=== PATIENT | female | born 1950 | race Hispanic/Latino ===

== ENCOUNTER 2020-12-29 09:27 | Day surgery (SDC) | payer MEDICARE ==
[2020-12-26 09:44] LABS: BASOPHILS % (AUTO) 0.3 % (0.0-5.0); EOSINOPHILS % (AUTO) 0.8 % (0.0-8.0); HEMATOCRIT 43.2 % (36-48); LYMPHOCYTES % (AUTO) 34.4 % (21.0-51.0); MEAN CORPUSCULAR HEMOGLOBIN 30.2 pg (27.0-33.0); MEAN CORPUSCULAR HGB CONC 32.2 g/dL (32.0-36.0); MEAN CORPUSCULAR VOLUME 93.7 fL (79-99); MONOCYTES % (AUTO) 6.4 % (3.0-13.0); NEUTROPHILS % (AUTO) 57.8 % (40.0-77.0); PLATELET COUNT (AUTO) 234 K/uL (130-400); RED BLOOD CELL COUNT(AUTO) 4.61 MIL/uL (4.00-5.50); RED CELL DISTRIBUTION WIDTH 13.2 % (11.0-15.5); WHITE BLOOD COUNT (AUTO) 6.3 K/uL (4.8-10.8)
[2020-12-26 09:53] LABS: CREATININE 0.9 mg/dL (0.5-1.5); POTASSIUM 4.3 mmol/L (3.5-5.1)
[2020-12-28 11:47] VITALS: BP 215/78
[2020-12-29] VITALS (18 sets, daily range): BP systolic 126–196; BP diastolic 56–157
[~2020-12-29] VITALS: Ht 157.5 cm; Wt 77.4 kg
[~2020-12-29 09:27] MED LIST: AMLO2.5T4 PO; ASCO100031 PO; ASPI-1114 PO; CYAN50009 PO; CYCL30DR OU; FISH1CAP27 PO; LATA7.5D OU; MULT-1258 PO; MV-M1TAB20 PO; OLOP2.5D12 OU; VITA-380 PO; ZINC PO
[2020-12-29] MEDS ORDERED: LACTATED RINGERS 1000ML 1,000 ML IV ONE (10:10)
[2020-12-29] MEDS: CEFAZOLIN SODIUM 1 GM VIAL IVP SCH ×2 (10:31→13:20)
[2020-12-29] MEDS ORDERED: EPINEPHRINE 1 MG/ML 30ML VIAL IJ ONE (11:59)
[2020-12-29] MEDS ORDERED: ROPIVACAINE 0.5% 5MG/ML 30ML IJ ONE (12:43)
[2020-12-29] MEDS ORDERED: PROPOFOL 10 MG/ML 20ML VIAL IV ONE (12:45)
[2020-12-29] MEDS ORDERED: MIDAZOLAM HCL 1 MG/ML 2ML VIAL ONE (12:45)
[2020-12-29] MEDS ORDERED: ROCURONIUM 10MG/1ML SYR 10 MG/ML ML ONE (12:45)
[2020-12-29] MEDS ORDERED: LIDOCAINE HCL-MPF 1% 5ML AMP IJ ONE (12:45)
[2020-12-29] MEDS ORDERED: FENTANYL CITRATE PF 50 MCG/1 ML 2ML VIAL ONE (12:46)
[2020-12-29] MEDS ORDERED: EPHEDRINE SULFATE 50 MG/ML AMPULE ONE ×2 (13:19→14:45)
[2020-12-29] MEDS ORDERED: GLYCOPYRROLATE 1 MG/5 ML SYRINGE ONE ×2 (13:50→14:29)
[2020-12-29] MEDS ORDERED: NEOSTIGMINE 5MG/5ML SYR IV ONE (15:04)
[2020-12-29] MEDS ORDERED: SUGAMMADEX SODIUM 200 MG/2 ML VIAL IV ONE (15:11)
[2020-12-29] MEDS ORDERED: HYDR-4060 PO (15:28)
[2020-12-29] MEDS ORDERED: CEPH500B PO (15:28)
[2020-12-29] MEDS ORDERED: ATROPINE 1MG SYG IVP ONE (15:30)
[2020-12-29] MEDS ORDERED: HYDRALAZINE 20MG/ML VIAL ONE (15:43)
== END 2020-12-29 17:45 | disposition home or self-care (01) ==
LOC: DAH 09:27
PROVIDERS: ATTEND Orthopaedic Surgery
DX: S46.012A Strain of muscle(s) and tendon(s) of the rotator cuff of left shoulder, initial encounter (principal); Z20.822 Contact with and (suspected) exposure to COVID-19; S46.112A Strain of muscle, fascia and tendon of long head of biceps, left arm, initial encounter; M75.42 Impingement syndrome of left shoulder; M19.012 Primary osteoarthritis, left shoulder; I10 Essential (primary) hypertension; E66.9 Obesity, unspecified; I44.1 Atrioventricular block, second degree; I45.10 Unspecified right bundle-branch block; Z90.710 Acquired absence of both cervix and uterus; Z98.890 Other specified postprocedural states; W01.0XXA Fall on same level from slipping, tripping and stumbling without subsequent striking against object, initial encounter; Y93.61 Activity, american tackle football; Y92.89 Other specified places as the place of occurrence of the external cause
CPT/HCPCS: 29824; 29826; 29827; 29828; 36415; 64415; 76942; 80048; 85025; 87635; 93005 ×2; A4215; A4221; A4222; A4223; A4565; A4649 ×5; A4663; A4930; A6204; C1713 ×2; C9803; G0168; J0171; J0360; J0461; J0690; J2250; J2704; J2710; J2795; J3010; J3490 ×5; J7120 ×2